=== PATIENT | male | born 1960 | race Caucasian/White ===

== ENCOUNTER 2019-01-29 17:46 | Observation (INO) | payer BC, OTHER ==
--- NOTE | 2019-01-29 19:04 | PDOC.FPRHP ---
- History of Present Illness Chief Complaint: Headache, Vision Changes History of Present Illness: Pt is a 58 yo M with history of HTN and DVT, currently on Eliquis, who presents for headache and vision changes as a transfer from [place]. C/o worst pounding headache on Tuesday when he went to get the mail. He then noticed he couldn't read the newspaper because his vision was different. He saw "wavy looking colored lines in the middle" of his vision. He thinks this lasted for 15-20 minutes, then resolved. He sees Dr. Sprague at [facility] in [place]. He was told to go to the ER this morning when he talked to his doctor. He has had mild headaches, left sided since Tuesday. Denies photosensitivity or tinnitus. No nausea, vomiting, chest pain. ED Course: In [place], troponin was 0.02, glucose was elevated at 212, but rest of CMP was normal, CT head was normal. He was given ASA 325. - Allergies/Adverse Reactions Allergies Allergy/AdvReac Type Severity Reaction Status Date / Time No Known Drug Allergies Allergy Verified 01/29/19 22:28 - Home Medications Medication Instructions Recorded Confirmed Type Apixaban [Eliquis] 1 tab PO BID 01/29/19 01/29/19 History Apixaban [Eliquis] 5 mg PO BID 01/29/19 01/29/19 History Calcium Carbonate/Vitamin D3 1 each PO DAILY 01/29/19 01/29/19 History [Calcium 500-Vit D3 600 Caplet] Doxycycline [Vibramycin] 100 mg PO BID 01/29/19 01/29/19 History Doxycycline [Vibramycin] 100 mg PO DAILY 01/29/19 01/29/19 History Esomeprazole Magnesium [Nexium 40 mg PO DAILY 01/29/19 01/29/19 History 24Hr] Esomeprazole Magnesium [Nexium] 40 mg PO DAILY 01/29/19 01/29/19 History Hydrochlorothiazide 25 mg PO DAILY 01/29/19 01/29/19 History Ipratropium/Albuterol Sulfate 3 ml NEB Q6H PRN 01/29/19 01/29/19 History [DuoNeb] Lisinopril 1 tab PO DAILY 01/29/19 01/29/19 History Lisinopril [Zestril] 10 mg PO DAILY 01/29/19 01/29/19 History Mupirocin 2% Ointment [Bactroban 1 applic TOP TID 01/29/19 01/29/19 History 2% Ointment] Simvastatin 40 mg PO HS 01/29/19 01/29/19 History Simvastatin [Zocor] 40 mg PO HS 01/29/19 01/29/19 History clonazePAM [Clonazepam] 1 tab PO TID PRN 01/29/19 01/29/19 History clonazePAM [Klonopin] 1 mg PO TID PRN 01/29/19 01/29/19 History predniSONE 1 tab PO DAILY 01/29/19 01/29/19 History predniSONE 7.5 mg PO DAILY 01/29/19 01/29/19 History predniSONE [Prednisone] 5 mg PO DAILY 01/29/19 01/29/19 History Comments: Lisinopril HCTX Simvastatin Prednisone Doxycycline-for rosacea Clonazepam prn for panic attacks - History PMHx: DVT on eliquis (5mg BID), HTN, Anxiety, Polymyalgia Rheumatica on prednisone, PSHx: Hx of lumbar herniated disc repair, Rotator cuff b/l surgery, B/l scopes of knee, right knee replacement FHx: Maternal side-MS, uncles, grandfather on maternal side-strokes, MIs Social: No alcohol use. Quit since had a DVT. No smoking, dips one can every few days. - Review of Systems General: denies: fever/chills, weight/appetite/sleep changes ENT: reports: nasal congestion, rhinorrhea Respiratory: reports: cough, exercise intolerance, other (GARCIA). denies: shortness of breath Cardiovascular: denies: chest pain Gastrointestinal: denies: nausea, vomiting, diarrhea, abdominal pain Skin: denies: rashes, lesions Musculoskeletal: denies: pain Neurological: denies: numbness, weakness Psychological: reports: anxiety. denies: depression - Vital signs BP: 138/86 HR: 73 RR: 17 Tmax: 98.3 Pox: 99% on RA Wt: 136 - Physical Exam Constitutional: NAD, awake, alert and oriented HEENT: normocephalic and atraumatic, PERRLA, EOMI, normal nasal mucosa, MMM, oropharynx clear Neck: supple, trachea midline Heart: RRR, normal S1/S2, no murmurs/rubs/gallops, pulses present -Heart: Edema in b/l lower extremity 1+ pitting Lungs: CTAB Abdomen: soft, non-tender, bowel sounds present -Abdomen: Protuberant Musculoskeletal: normal structure, normal tone, ROM grossly normal Neurological: no focal deficit, CN II-XII intact, normal sensation Skin: no rash/lesions -Skin: SKs present over upper back Heme/Lymphatic: no unusual bruising or bleeding, no purpura, no petechia Psychiatric: normal mood and affect, good judgment and insight FMR H&P: A/P - Problem List (1) TIA (transient ischemic attack) Current Visit: Yes Status: Acute Code(s): G45.9 - TRANSIENT CEREBRAL ISCHEMIC ATTACK, UNSPECIFIED (2) HTN (hypertension) Current Visit: Yes Status: Acute Code(s): I10 - ESSENTIAL (PRIMARY) HYPERTENSION (3) DVT (deep venous thrombosis) Current Visit: Yes Status: Acute Code(s): I82.409 - ACUTE EMBOLISM AND THOMBOS UNSP DEEP VN UNSP LOWER EXTREMITY - Plan Pt is a 58 yo M with history of HTN and DVT, currently on Eliquis, who presents for headache and vision changes as a transfer from [place]. 1. TIA DOWLING & VC that resolved * CT Brain Normal * NIH: 0 * Orthostatics at outside facility negative * Ordered MRI Brain wo, Carotid Coppler, ECHO, EKG * Ordered Lipid Panel * Was on Simvastatin, Changed to Atorva 80 * ASA 325 given at outside facility, will continue 2. DVT Developed 4 wks ago * Currently on Eliquis 5mg BID * Will reconcile home meds and continue 3. HTN BP: 160/88 * Will restart home meds * Will monitor vitals and put on prn Hydralazine 4. Rosacea * Will continue home med 5. Polymyalgia Rheumatica * Takes prednisone at home * Will continue 6. Elevated Glucose B * A1C ordered * Will reassess once we get labs PCP: MARY DVT PPx: Eliquis Diet: HHLSo Lines: Peripheral, SL Dispo: Obs, LOS <48H. Will get TIA workup to rule out stroke and go from there. FMR H&P: Upper Level - Plan Date/Time: 01/29/19 1900 58 yo male with pmx htn, hld, obesity presents with a headache and vision changes at the [place] ER. He was subsequently transferred here for a CVA work- up. His head CT was negative for an acute hemorrhagic stroke, there were some chronic findings. His sx have resolved currently. He also has no focal deficits currently on exam. We have ordered an MRI for in the morning, as well as an echo and carotid sono. We also have ordered additional labs to risk stratefy him , as he has a lot of risk factors. Brian Hammond MD, PGY-3 have evaluated this patient and agree with findings/ plan as outlined by internet e commerce specialist resident. Pertinent changes/additions are listed here. Addendum - Attending - Attending Attestation Date/Time: 01/30/199 I personally evaluated the patient and discussed the management with Dr. Dakota Lowry I agree with the History, Examination, Assessment and Plan documented above with any addition or exceptions noted below- 58 yo M with history of HTN, HLD, polymyalgia rheumatica and recently diagnosed DVT, currently on Eliquis, who presents for headache and vision changes. C/o pounding headache on Tuesday when he went to get the mail. He then noticed he couldn't read the newspaper because his vision was different. He saw "wavy looking colored lines in the middle" of his vision. He thinks this lasted for 15-20 minutes, then resolved. Only residual symptom was mild DOWLING for which he tried tylenol without relief. Denies any weakness, numbness. Does endorse decreased exercise tolerance and increase dpedal edema. PMH/PSH/Meds/ SH reviewed and agree with residnet's documentation. Afebrile VSS. Exam repeated by me and agree with resident's findings. Labs- CMP normal except [id number]; CT brain- no acute findings. A/P : 1) Possible TIA- will obtain MRI/MRA brain. Continue current meds. 2) HTN- continue to monitor. 3) Recent DVT- continue eliquis
[2019-01-29] MEDS ORDERED: Ondansetron ODT 4 MG TAB PO PRN (19:51)
[2019-01-29] MEDS ORDERED: Acetaminophen 650 MG Suppository PR PRN (19:51)
[2019-01-29] MEDS ORDERED: Ondansetron PF 4 MG/2 ML Vial IVP PRN (19:51)
[2019-01-29] MEDS ORDERED: Senokot S 8.6-50 MG TAB PO PRN (19:51)
[2019-01-29] MEDS ORDERED: Acetaminophen 325 MG TAB PO PRN (19:51)
[2019-01-29 21:00] LABS: Hemoglobin A1c 6.5 % (4.0-6.0)
[2019-01-29] MEDS ORDERED: Atorvastatin Calcium 40 MG TAB PO SCH (21:00)
[2019-01-29] MEDS ORDERED: Dextrose 50% Abboject 50 ML SYRINGE SLOW IVP PRN (21:22)
[2019-01-29] MEDS ORDERED: Dextrose 5% in Water 1,000 ML IV PRN (21:22)
[2019-01-29] MEDS ORDERED: HumaLOG 300 UNITS/3 ML VIAL SC PRN (21:22)
[2019-01-29] MEDS ORDERED: clonazePAM 1 MG TAB PO PRN (22:53)
[2019-01-29] MEDS ORDERED: Apixaban 5 MG TAB PO SCH (23:45)
[2019-01-30 04:24] VITALS: BMI 39.5
[2019-01-30 05:40] LABS: #Eosinphils 0.3 thou/uL (0.0-0.7); #Lymphocytes 2.1 thou/uL (1.20-3.40); #Monocytes 0.8 thou/uL (0.11-0.59); #Neutrophils 6.5 thou/uL (1.40-6.50); %Basophils 0.5 % (0.0-1.0); %Eosinophils 2.7 % (0.0-10.0); %Lymphocytes 21.3 % (21.0-51.0); %Monocytes 8.5 % (0.0-10.0); Hemoglobin 14.4 g/dL (14.0-18.0); Mean Corpuscular HGB CONC 32.6 g/dL (32.0-36.0); Mean Corpuscular Hemoglobin 27.6 pg (27.0-31.0); Mean Corpuscular Volume 84.9 fL (78.0-98.0); Mean Platelet Volume 7.9 fL (7.4-10.4); Platelet Count 314 thou/uL (130-400); RBC Distribution Width 14.3 % (11.5-14.5); Red Blood Cell (RBC) Count 5.19 mill/uL (4.70-6.10); White Blood Cell (WBC) Count 9.7 thou/uL (4.8-10.8)
[2019-01-30 05:55] LABS: ALT (SGPT) 28 U/L (8-55); AST (SGOT) 17 U/L (5-34); Albumin 3.5 g/dL (3.5-5.0); Alkaline Phosphatase 70 U/L (40-110); Anion Gap 10 mmol/L (10-20); BUN (Urea Nitrogen) 11 mg/dL (8.4-25.7); Bilirubin, Total 0.4 mg/dL (0.2-1.2); Calc. Creatinine Clearance 176 mL/min (70-130); Calcium 9.3 mg/dL (7.8-10.44); Carbon Dioxide 31 mmol/L (22-29); Cardiac Risk 3.6 (Less than 4.5); Chloride 102 mmol/L (98-107); Cholesterol 135 mg/dl (< 200 Desired); Estimated GFR-MDRD Greater than 90; Globulin 2.9 g/dL (2.4-3.5); Glucose 114 mg/dL (70-105); HDL Cholesterol 38 mg/dL (>60 Neg Risk); LDL Cholesterol, Calculated 80 mg/dL; Potassium 4.1 mmol/L (3.5-5.1); Protein, Total 6.4 g/dL (6.0-8.3); Sodium 139 mmol/L (136-145); Triglycerides 86 mg/dL (Less than 150)
--- NOTE | 2019-01-30 06:04 | PDOC.FM ---
- Subjective Subjective: Mr. Brewer is feeling better this morning, complaining of a slight headache. - Objective MAR Reviewed: Yes Vital Signs & Weight: Vital Signs (12 hours) Temp Pulse Resp BP BP Pulse Ox 01/30/19 03:03 71 F L 71 20 106/66 96 01/29/19 23:45 97.6 F 79 20 116/65 98 01/29/19 20:26 97.9 F 76 20 123/79 99 Weight Weight 136.078 kg Result Diagrams: 01/30/19 04:50 01/30/19 04:50 Radiology Reviewed by me: Yes Radiology: Carotid Doppler shows no significant stenosis. Phys Exam - Physical Examination Constitutional: NAD HEENT: PERRLA, moist MMs Neck: supple, full ROM Respiratory: no wheezing, no rales, no rhonchi, clear to auscultation bilateral Cardiovascular: RRR, no significant murmur, no rub Gastrointestinal: soft, non-tender, no distention, positive bowel sounds Musculoskeletal: no edema, pulses present Neurological: non-focal, normal sensation, moves all 4 limbs Lymphatic: no nodes Psychiatric: normal affect, A&O x 3 Skin: no rash, normal turgor, cap refill <2 seconds Dx/Plan (1) Rosacea Code(s): L71.9 - ROSACEA, UNSPECIFIED Status: Acute (2) Polymyalgia rheumatica Code(s): M35.3 - POLYMYALGIA RHEUMATICA Status: Acute (3) DVT (deep venous thrombosis) Code(s): I82.409 - ACUTE EMBOLISM AND THOMBOS UNSP DEEP VN UNSP LOWER EXTREMITY Status: Acute (4) HTN (hypertension) Code(s): I10 - ESSENTIAL (PRIMARY) HYPERTENSION Status: Acute (5) TIA (transient ischemic attack) Code(s): G45.9 - TRANSIENT CEREBRAL ISCHEMIC ATTACK, UNSPECIFIED Status: Acute - Plan Plan: Pt is a 58 yo M with history of HTN and DVT, currently on Eliquis, who presents for headache and vision changes as a transfer from [place]. TIA suspected - Initial presentation of headache and vision changes that have since resolved. - CT head done in [place], no evidence of acute findings. There was evidence of chronic changes. - MRI Brain W/O, Carotid Coppler, and ECHO pending - ASCVD: 6.2% - Lipid panel within normal limits. A1c mildly elevated 6.5. - Changed to high intensity statin, will further discuss blood sugar management. DVT - Developed 4 weeks ago, after right total knee replacement in August. - Currently on Eliquis 5mg BID HTN - Will resume home medications and monitor Rosacea - Will continue home med Polymyalgia Rheumatica - will continue home prednisone Diabetes - A1c 6.5 - will discuss medical options with patient today. PCP: MARY DVT PPx: Eliquis Diet: HHLSo Lines: Peripheral, SL Dispo: Obs, LOS <48H. Will get TIA workup to rule out stroke and go from there. Addendum - Attending - Attending Attestation Date/Time: 01/30/19 [id number] I personally evaluated the patient and discussed the management with Dr. Dumont. I agree with the History, Examination, Assessment and Plan documented above with any addition or exceptions noted below.
--- NOTE | 2019-01-30 07:59 | ULT ---
EXAM: Carotid ultrasound HISTORY: TIA COMPARISON: None TECHNIQUE: Multiplanar grayscale and color Doppler images were obtained in a carotid ultrasound. Spec tral analysis of the Doppler waveforms were performed. FINDINGS: No significant plaque is visualized in either internal carotid artery. No significant plaque is seen in either common carotid artery. The Doppler waveforms are normal in the visualized vessels. Peak systolic velocity in the right internal carotid artery 78 cm/s. Peak systolic velocity in the right common carotid artery 106 cm/s. The right ICA/CCA ratio is 0.7. Peak systolic velocity in the left internal carotid artery 97 cm/s. Peak systolic velocity in the left common carotid artery 143 cm/s. The left ICA/CCA ratio is 0.7. Both vertebral arteries demonstrate antegrade flow without focal stenosis IMPRESSION: No evidence of hemodynamically significant stenosis.
[2019-01-30] MEDS ORDERED: Aspirin 81 mg Enteric Coated Tablet PO SCH (09:00)
[2019-01-30] MEDS ORDERED: Calcium Carbonate + Vit D 1 TAB PO SCH (09:00)
[2019-01-30] MEDS ORDERED: Doxycycline 100 MG CAP PO SCH (09:00)
[2019-01-30] MEDS ORDERED: Lisinopril 10 MG TAB PO SCH ×2 (09:00)
[2019-01-30] MEDS ORDERED: predniSONE 5 MG TAB PO SCH (09:00)
[2019-01-30] MEDS ORDERED: Hydrochlorothiazide 25 MG TAB PO SCH (09:00)
[2019-01-30] MEDS ORDERED: Apixaban 5 MG TAB PO SCH (09:00)
[2019-01-30] MEDS ORDERED: Aspirin 325 mg Enteric Coated Tablet PO SCH (09:00)
--- NOTE | 2019-01-30 09:28 | MRI ---
EXAM: MRI of the brain without contrast HISTORY: TIA COMPARISON: None TECHNIQUE: Multiplanar multisequence MR images were obtained of the brain without IV contrast. FINDINGS: The brain demonstrates normal signal intensity on all obtained sequences. No restricted diffusion. No hydronephrosis. No extra-axial fluid collection or intracranial hemorrhage. The expected flow voids are present. Corpus callosum, pituitary, and craniocervical junction are within normal limits. The calvarium and overlying soft tissues are unremarkable. A tiny mucus retention cyst is seen in the left maxillary sinus. The other paranasal sinuses and mast oid air cells are well aerated. IMPRESSION: No evidence of acute intracranial abnormality.
[2019-01-30] MEDS: Mupirocin 2% Ointment 22 GM Tube TOP SCH ×2 (09:37→17:56)
[2019-01-30 12:27] VITALS: TEMP 97.9
[2019-01-30 15:43] VITALS: BP 132/70
[2019-01-30] MEDS ORDERED: FLU VACC QS2019-20(6MOS UP)/PF 60 MCG/0.5 ML SYRINGE IM ONE (21:00)
--- NOTE | 2019-02-01 14:02 | DIS ---
DATE OF ADMISSION: 01/29/2019 DATE OF DISCHARGE: 01/30/2019 CONSULTS: None. PROCEDURES: Echocardiogram, carotid Doppler study, brain MRI. PRIMARY DIAGNOSIS: Possible transient ischemic attack. SECONDARY DIAGNOSES: Hypertension; deep vein thrombosis; rosacea; polymyalgia rheumatica; diabetes mellitus, initial diagnosis. DISCHARGE MEDICATION: 1. Eliquis 5 mg b.i.d. 2. Klonopin 1 mg t.i.d. as needed. 3. Doxycycline 100 mg b.i.d. 4. Nexium 40 mg daily. 5. Hydrochlorothiazide 25 mg daily. 6. Lisinopril 10 mg daily. 7. Prednisone 6 mg daily. 8. Lipitor 80 mg daily. 9. Metformin 500 mg twice daily. Discontinued medication: Simvastatin. HISTORY OF PRESENT ILLNESS/HOSPITAL COURSE: Mr. Pollack is a 58-year-old male with a history of hypertension and deep vein thrombosis, currently being treated with Eliquis, who presented for headache and vision changes as a transfer from the [facility]. He complains of a pounding headache, characterized as the worst headache of his life that began on Tuesday prior to admission. The headache lasted for 15 to 20 minutes and was associated with blurry wavy looking vision that lasted for approximately [address]. [address] Henry at [facility] in [place] and was told to go to the ER and then was sent to [facility] for a stroke/TIA rule out. A CT head done in [place] was normal. He was worked up for TIA while hospitalized. The MRI did not show acute intracranial abnormality. The carotid Doppler study did not show significant carotid stenosis, and the echocardiogram showed a normal ejection fraction estimated at 55% to 60% with a normal heart function. His symptoms of headache and blurry vision had resolved prior to admission and did not recur while he was in the hospital. It is likely that the headache and vision changes could have been a migraine headache. Notable lab studies include a fasting lipid profile of a cholesterol of 135, hemoglobin A1c of 6.5, BNP of less than 10. His A1c is 6.5, which is significant for diabetes mellitus. The diagnosis was discussed at length with the patient and his . The decision was made to start lifestyle modifications following the [place] [employer] diet and metformin 500 mg b.i.d. for better control of his blood sugars and helpful prevention of later complications of diabetes. DISPOSITION: Stable. DISCHARGE INSTRUCTIONS: 1. Location: Home. 2. Diet: Consistent carb. 3. Activity: Ad anisa. 4. Follow up with primary care physician within 1 week. Job ID: [id number]
== END 2019-01-30 18:38 | disposition home or self-care (01) ==
LOC: ERS 17:46 → 2SE 20:34
PROVIDERS: ADMIT Family Medicine; ATTEND Family Medicine
DX: H53.9 Unspecified visual disturbance (principal); R51 Headache; E11.9 Type 2 diabetes mellitus without complications; I10 Essential (primary) hypertension; L71.9 Rosacea, unspecified; F41.9 Anxiety disorder, unspecified; M35.3 Polymyalgia rheumatica; E78.5 Hyperlipidemia, unspecified; F17.220 Nicotine dependence, chewing tobacco, uncomplicated; E66.9 Obesity, unspecified; Z68.39 Body mass index [BMI] 39.0-39.9, adult; Z86.718 Personal history of other venous thrombosis and embolism; Z79.01 Long term (current) use of anticoagulants; Z79.52 Long term (current) use of systemic steroids; Z79.899 Other long term (current) drug therapy
CPT/HCPCS: 36415; 36416; 70551; 80053; 80061; 83036; 83880; 85025; 90471; 90686; 93005; 93010; 93306; 93880; 99284; G0008; G0378; J7512

== ENCOUNTER 2020-11-07 10:45 | Outpatient (CLI) | payer BC | END 2020-11-07 10:46 | disposition home or self-care (01) | LOC: NM 10:45 | PROVIDERS: ATTEND Specialist | DX: T84.84XA Pain due to internal orthopedic prosthetic devices, implants and grafts, initial encounter (principal); M19.011 Primary osteoarthritis, right shoulder; M19.012 Primary osteoarthritis, left shoulder | CPT/HCPCS: 70250; 78315; A9503 ==